=== PATIENT | male | born 1965 | race American Indian/Alaskan Native ===

== ENCOUNTER 2016-07-22 16:02 | Emergency (ER) | payer MEDICAID ==
[2016-07-22 16:03] VITALS: BMI 29.4
[2016-07-22 16:13] VITALS: TEMP 99.7; O2SAT 97
[2016-07-22 16:58] LABS: ADD MANUAL DIFF? NO
[2016-07-22 17:06] LABS: BASO # 0.04 K/mm3 (0.0-2.0); BASO % 0.3 % (0.0-3.0); EOS % 0.3 % (1.5-5.0); GRAN # 8.84 (1.4-6.5); GRAN % 68.9 % (50.0-68.0); HEMATOCRIT 44.2 % (42.0-52.0); LYMPH # 2.6 (1.2-3.4); LYMPH % 20.4 % (22.0-35.0); MEAN CORPUSCULAR HEMOGLOBIN 31.3 pg (25.0-35.0); MEAN CORPUSCULAR HGB CONC 36.9 g/dl (31.0-37.0); MEAN PLATELET VOLUME 10.2 fl (7.0-11.0); MONO # 1.3 (0.1-0.6); MONO % 10.1 % (1.0-6.0); PLATELET COUNT 218 10^3/uL (120.0-450.0); RED CELL DISTRIBUTION WIDTH 13.5 % (11.5-14.5); WHITE BLOOD COUNT 12.8 10^3/ul (4.5-11.0)
--- NOTE | 2016-07-22 17:06 | ED PDOC ---
Arrival/HPI - General Historian: Patient <Mariana Damon A - Last Filed: 07/22/16 23:28> <Prudence Hendrickson A - Last Filed: 07/28/16 09:17> - General Chief Complaint: Dental Pain Time Seen by Provider: 07/22/16 16:04 - History of Present Illness Narrative History of Present Illness (Text): 07/22/16 17:02 51yo male with PMHx of HIV and hypercholestrol referred to [facility] by a dentist for a dental abscess. Patient states he started having toothache 3days ago and swelling started today. He saw the Dentist today who gave him a prescription of antibiotics. He have not taken the antibiotics yet. He notes pain to the area. Denies fever, chills, nausea, vomiting, any other complaint. He states his viral load is undetectable. (Mariana Damon A) Past Medical History - Provider Review Nursing Documentation Reviewed: Yes - Infectious Disease Hx of Infectious Diseases: None - Cardiac Hx Hypertension: Yes - Pulmonary Hx Respiratory Disorders: No - Neurological Hx Neurological Disorder: No - HEENT Hx HEENT Disorder: No - Renal Hx Renal Disorder: No - Endocrine/Metabolic Hx Endocrine Disorders: No - Hematological/Oncological Hx Blood Disorders: Yes Hx AIDS: Yes Other/Comment: HX SYPHILLIS - Integumentary Hx Dermatological Disorder: No - Musculoskeletal/Rheumatological Hx Musculoskeletal Disorders: No - Gastrointestinal Hx Gastrointestinal Disorders: No - Genitourinary/Gynecological Hx Genitourinary Disorders: No - Psychiatric Hx Emotional Abuse: No Hx Physical Abuse: No Hx Substance Use: No - Surgical History Other/Comment: hernia - Anesthesia Hx Anesthesia Reactions: No - Suicidal Assessment Feels Threatened In Home Enviroment: No <Mariana Damon A - Last Filed: 07/22/16 23:28> Family/Social History - Physician Review Nursing Documentation Reviewed: Yes Family/Social History: Unknown Family HX Smoking Status: Unknown If Ever Smoked Hx Alcohol Use: No Hx Substance Use: No <Mariana Damon A - Last Filed: 07/22/16 23:28> Allergies/Home Meds <Mariana Damon A - Last Filed: 07/22/16 23:28> <Prudence Hendrickson A - Last Filed: 07/28/16 09:17> Allergies/Adverse Reactions: Allergies No Known Allergies Allergy (Verified 07/22/16 16:07) Home Medications: Home Meds Medication Instructions Recorded Confirmed Aspirin 81 mg PO DAILY 07/30/14 07/22/16 Atorvastatin Calcium [Lipitor] 10 mg PO DAILY 08/06/14 07/22/16 Efavirenz/Emtricitabine/Teno 1 tab PO DAILY 08/06/14 07/22/16 [Atripla 600 MG-200 MG-300 MG] Review of Systems - Physician Review All systems were reviewed & negative as marked: Yes - Review of Systems Constitutional: Normal Eyes: Normal ENT: Other (Dental pain/swelling) Respiratory: Normal Cardiovascular: Normal Gastrointestinal: Normal Genitourinary Male: Normal Musculoskeletal: Normal Skin: Normal Neurological: Normal Endocrine: Normal Hemo/Lymphatic: Normal Psychiatric: Normal <DirdavyHappiness A - Last Filed: 07/22/16 23:28> Physical Exam Vital Signs Reviewed: Yes Temperature: Afebrile Blood Pressure: Normal Pulse: Regular Respiratory Rate: Normal Appearance: Positive for: Well-Appearing, Non-Toxic, Comfortable Pain Distress: None Mental Status: Positive for: Alert and Oriented X 3 - Systems Exam Head: Present: Atraumatic, Normocephalic Pupils: Present: PERRL Extroacular Muscles: Present: EOMI Conjunctiva: Present: Normal Mouth: Present: Moist Mucous Membranes. No: Drooling, Trismus, Normal Teeth ( Right sided lower gum swelling noted with overlaying jaw swelling) Neck: Present: Normal Range of Motion Respiratory/Chest: Present: Clear to Auscultation, Good Air Exchange. No: Respiratory Distress, Accessory Muscle Use Cardiovascular: Present: Regular Rate and Rhythm, Normal S1, S2. No: Murmurs Abdomen: Present: Normal Bowel Sounds. No: Tenderness, Distention, Peritoneal Signs Back: Present: Normal Inspection Upper Extremity: Present: Normal Inspection. No: Cyanosis, Edema Lower Extremity: Present: Normal Inspection. No: Edema Neurological: Present: GCS=15, CN II-XII Intact, Speech Normal Skin: Present: Warm, Dry, Normal Color. No: Rashes Psychiatric: Present: Alert, Oriented x 3, Normal Insight, Normal Concentration <Diru,Happiness A - Last Filed: 07/22/16 23:28> Medical Decision Making <Diru,Happiness A - Last Filed: 07/22/16 23:28> <Prudence Hendrickson - Last Filed: 07/28/16 09:17> ED Course and Treatment: 07/22/16 17:53 Pt in ED for stated history. He was hemodynamically stable. Asked for food and noted to be eating sandwich in ED. Lab was ordered. Case was [facility] , Dr. Hudson at [place], he states patient do not need transfer. States patient can just come to [facility] and be seen. Pt is stable. In no distress. Not toxic in ED. Tolerating food. He was given a dose of Clindamycin in ED. He already have antibiotic prescription from his Dentist. Plan is to discharge him to f/u with [facility]. He states he will rather go to [facility] because is closer to him. He was strongly advised to f/u with [facility] today. Advised to return to ED for any new or worsening symptoms. (Mariana Damon) - Lab Interpretations Microbiology Results: Microbiology Results 07/22/16 17:34 Blood-Venous Blood Culture - Final NO GROWTH AFTER 5 DAYS 07/22/16 17:34 Blood-Venous Gram Stain - Final TEST NOT PERFORMED 07/22/16 16:50 Blood-Venous Blood Culture - Final NO GROWTH AFTER 5 DAYS 07/22/16 16:50 Blood-Venous Gram Stain - Final TEST NOT PERFORMED Lab Results: 07/22/16 16:00 07/22/16 16:00 Lab Results 07/22/16 16:00: Sodium 137, Potassium 4.4, Chloride 101, Carbon Dioxide 24, Anion Gap 16, BUN 8, Creatinine 0.9, Est GFR ( Amer) > 60, Est GFR (Non- Af Amer) > 60, Random Glucose 87, Calcium 9.6, Total Bilirubin 1.2, AST 44, ALT 56, Alkaline Phosphatase 100, Total Protein 9.1 H, Albumin 4.6, Globulin 4.4, Albumin/Globulin Ratio 1.0 L 07/22/16 16:00: WBC 12.8 H, RBC 5.20, Hgb 16.3, Hct 44.2, MCV 85.0, MCH 31.3, MCHC 36.9, RDW 13.5, Plt Count 218, MPV 10.2, Gran % 68.9 H, Lymph % (Auto) 20.4 L, [place] % (Auto) 10.1 H, Eos % (Auto) 0.3 L, Baso % (Auto) 0.3, Gran # 8.84 H, Lymph # 2.6, [place] # 1.3 H, Eos # 0.0, Baso # 0.04 - Medication Orders Current Medication Orders: Discontinued Medications Clindamycin Phosphate 600 mg/ (Sodium Chloride) 54 mls @ 108 mls/hr IVPB STAT STA PRN Reason: Protocol Stop: 07/22/16 17:48 Last Admin: 07/22/16 18:02 Dose: 108 mls/hr Morphine Sulfate (Morphine) 4 mg IVP STAT STA Stop: 07/22/16 17:10 Last Admin: 07/22/16 17:22 Dose: 4 mg - PA / WE[employer]ARD[employer] CHECKER / Resident Statement /DO has examined the patient and agrees with the treatment plan. <Prudence Hendrickson - Last Filed: 07/28/16 09:17> Disposition/Present on Arrival - Present on Arrival Any Indicators Present on Arrival: No History of DVT/PE: No History of Uncontrolled Diabetes: No Urinary Catheter: No History of Decub. Ulcer: No History Surgical Site Infection Following: None - Disposition Have Diagnosis and Disposition been Completed?: Yes Disposition Time: 17:20 <Mariana Damon - Last Filed: 07/22/16 23:28> <Prudence Hendrickson - Last Filed: 07/28/16 09:17> - Disposition Diagnosis: Dental abscess Disposition: HOME/ ROUTINE Condition: STABLE Discharge Instructions (ExitCare): Dental Abscess (ED) Additional Instructions: Follow up with [facility] at [facility] or [facility] and take your antibiotics prescription as was directed Return to ED for any new or worsening symptoms Referrals: Lillie Ashraf MD [Primary Care Provider] - Follow up with primary
[2016-07-22] MEDS ORDERED: Morphine 4 mg/ml ISec IVP STA (17:09)
[2016-07-22 17:25] VITALS: BP 154/96; PULSE 86; RESP 18
[2016-07-22 17:46] LABS: ALKALINE PHOSPHATASE 100 U/L (38-133); ALT/SGPT 56 U/L (7-56); AST/SGOT 44 U/L (15-59); BILIRUBIN,TOTAL 1.2 mg/dL (0.2-1.3); BLOOD UREA NITROGEN 8 mg/dL (7-21); CALCIUM 9.6 mg/dL (8.4-10.5); CARBON DIOXIDE 24 mmol/L (21-33); CHLORIDE 101 mmol/L (98-107); GFR AFRICAN-AMERICAN > 60; GLUCOSE,RANDOM 87 mg/dL (70-110); POTASSIUM 4.4 mmol/L (3.6-5.0); SODIUM 137 mmol/L (132-148); TOTAL PROTEIN 9.1 g/dL (5.8-8.3)
== END 2016-07-22 18:29 | disposition home or self-care (01) ==
LOC: ED 16:02
DX: K04.7 Periapical abscess without sinus (principal)
CPT/HCPCS: 80053; 85025; 87040; 96374; 96375; 99283; J2270

== ENCOUNTER 2016-09-08 10:31 | Day surgery (SDC) | payer MEDICAID ==
[2016-09-08 10:51] VITALS: BMI 29.4
[2016-09-08] MEDS ORDERED: Propofol 10 mg/ml Inj (20 ML) ONE ×2 (13:30→13:55)
[2016-09-08] MEDS ORDERED: Lidocaine 2% Inj (20ml) ONE (13:30)
[2016-09-08] MEDS ORDERED: Sodium Chloride 0.9% 500 ML IV SCH (14:15)
[2016-09-08 14:26] VITALS: TEMP 98
[2016-09-08 15:26] VITALS: BP 118/81; PULSE 94; RESP 16; O2SAT 97
== END 2016-09-08 15:58 | disposition home or self-care (01) ==
LOC: ENDO 10:31
PROVIDERS: ATTEND Internal Medicine
DX: D12.3 Benign neoplasm of transverse colon (principal); D12.5 Benign neoplasm of sigmoid colon; K63.5 Polyp of colon; K64.8 Other hemorrhoids; Z21 Asymptomatic human immunodeficiency virus [HIV] infection status; Z12.11 Encounter for screening for malignant neoplasm of colon
CPT/HCPCS: 45380; 88305; J2704; J7040 ×2